=== PATIENT | male | born 1965 | race Caucasian/White ===

== ENCOUNTER → 2018-12-16 | Outpatient (CLI) | payer OTHER ==
[~2018-12-16] MED LIST: AMARYL2 MG PO; ASPIR 8181 MG PO; LISINOPRIL-HCT1 EACH PO; METFORMIN HCL1000 MG PO; NEXIUM40 MG PO; Z.0.GLUCOPHAGE500 MG MT; Z.0.LIPITOR10 MG MT
--- NOTE | 2018-12-16 10:29 | Diagnostic Imaging Report ---
Left knee MRI without contrast. History: Knee pain. Buckling. Decreased range of motion. Pain not responding to conservative management Comparison: None. Technique: Multiplanar multi-sequence MRI of the knee without contrast. Findings: Medial compartment: Complex tear involving the posterior horn and body segments of the medial meniscus. The medial compartmental articular cartilage surfaces are thinned with regions of fraying and deep fissuring. There is mild underlying bone marrow edema at the periphery of the medial tibial plateau. Peripheral marginal osteophytes. The medial collateral ligament complex is intact. Lateral compartment: Midsubstance degeneration of the lateral meniscus. No lateral meniscus tear is seen. The lateral compartmental articular cartilage surfaces are slightly thin with regions of fraying and deep fissuring. Mild underlying bone marrow edema at the anterior lateral femoral condyle. Peripheral marginal osteophytes. The lateral collateral ligament complex is intact Intercondylar notch: Degeneration and scarring of the anterior cruciate ligament. The ACL and PCL are otherwise intact. Patellofemoral compartment: Regions of full-thickness articular cartilage loss in the patellofemoral compartment with underlying bone marrow edema most pronounced at the lateral trochlea. Extensor mechanism: The quadriceps and patellar tendons are normal. Other findings: There is a joint effusion and synovitis. There is no acute fracture, subluxation or avascular necrosis. Small Gallo's cyst. Degenerative arthrosis at the proximal tibiofibular articulation with mild bone marrow edema likely reactive. IMPRESSION: Complex medial meniscus tear with associated degenerative arthrosis in the medial compartment of the knee with mild bone marrow edema at the periphery of the medial tibial plateau. Degenerative arthrosis in the lateral and patellofemoral compartments with regions of full-thickness articular cartilage loss and mild bone marrow edema. Degeneration and scarring of the anterior cruciate ligament. Joint effusion, synovitis and small Gallo's cyst. Signed by: Dr. Aries Sarkar M.D. on 12/16/2018 10:26 AM
== END ==
LOC: MRI 08:18
PROVIDERS: ATTEND Family Medicine
DX: S83.412D Sprain of medial collateral ligament of left knee, subsequent encounter (principal)